=== PATIENT | female | born 1950 | race Two or more races ===

== ENCOUNTER 2021-02-14 22:25 | Inpatient (IN) | payer OTHER ==
[~2021-02-14] VITALS: Ht 154.9 cm; Wt 59.0 kg
[2021-02-14] MEDS ORDERED: LOSARTAN POTASS25 MG (22:37)
[2021-02-14] MEDS ORDERED: SYNTHROID100 MCG (22:38)
[2021-02-14] MEDS ORDERED: ADULT LOW DOSE81 M1 (22:38)
[2021-02-16] MEDS ORDERED: METRONIDAZOLE500 MG (08:28)
[2021-02-16] MEDS ORDERED: LEVOFLOXACIN500 MG (08:28)
[2021-02-16] MEDS ORDERED: FAMOTIDINE40 MG (08:28)
[2021-02-16] MEDS ORDERED: PANTOPRAZOLE SO40 MG (08:28)
[2021-02-16] MEDS ORDERED: HYDROCORTISO453.6 G1 (08:29)
[2021-02-16] MEDS ORDERED: OPTIVE EYE DROP15 ML (08:29)
[2021-02-16] MEDS ORDERED: ESOMEPRAZOLE MA20 MG (08:30)
[2021-02-16] MEDS ORDERED: VITAMIN D3250 MCG (08:30)
[2021-02-16] MEDS ORDERED: PENTOXIFYLLINE400 MG (08:30)
[2021-02-18] MEDS ORDERED: CIPRO500 MG PO (12:36)
[2021-02-18] MEDS ORDERED: METRONIDAZOLE500 MG PO (12:37)
== END 2021-02-18 20:03 | disposition home or self-care (01) | DRG 386 ==
LOC: ER 22:25 → SURH 02-15 16:43
PROVIDERS: ADMIT Surgery; ATTEND Surgery
PROC: 30233N1 Transfusion of Nonautologous Red Blood Cells into Peripheral Vein, Percutaneous Approach (ICD-10-PCS; principal; 2021-02-17)
DX: K51.00 Ulcerative (chronic) pancolitis without complications (principal); K56.690 Other partial intestinal obstruction; K51.018 Ulcerative (chronic) pancolitis with other complication; K62.4 Stenosis of anus and rectum; D64.9 Anemia, unspecified; I11.9 Hypertensive heart disease without heart failure; E03.9 Hypothyroidism, unspecified

== ENCOUNTER → 2021-02-27 08:00 | Outpatient (CLI) | payer OTHER ==
[~2021-02-27] VITALS: Ht 154.9 cm; Wt 59.0 kg
[~2021-02-27 08:00] MED LIST: ADULT LOW DOSE81 M1; CIPRO500 MG PO; ESOMEPRAZOLE MA20 MG; FAMOTIDINE40 MG; HYDROCORTISO453.6 G1; INTESTINEX680 M1 PO; KETOCONAZOLE15 GM; LEVOFLOXACIN500 MG; LOSARTAN POTASS25 MG; METRONIDAZOLE500 MG; METRONIDAZOLE500 MG PO; OPTIVE EYE DROP15 ML; PANTOPRAZOLE SO40 MG; PENTOXIFYLLINE400 MG; SYNTHROID100 MCG; ULTRAM50 MG PO; VITAMIN D3250 MCG
== END | disposition home or self-care (01) ==
LOC: LAB 08:00 → EDUNIT# 10:00 → SURH 03-03 10:00 → EDSTATUS 03-03 10:00
PROVIDERS: ATTEND Surgery
DX: K57.20 Diverticulitis of large intestine with perforation and abscess without bleeding (principal); Z03.818 Encounter for observation for suspected exposure to other biological agents ruled out; Z93.3 Colostomy status; K55.1 Chronic vascular disorders of intestine; K59.09 Other constipation; K43.2 Incisional hernia without obstruction or gangrene; Z20.828 Contact with and (suspected) exposure to other viral communicable diseases

== ENCOUNTER 2021-02-28 14:20 | Inpatient (IN) | payer OTHER ==
[~2021-02-28] VITALS: Ht 154.9 cm; Wt 56.7 kg
[~2021-02-28 14:20] MED LIST changes: -INTESTINEX680 M1 PO; -KETOCONAZOLE15 GM; -ULTRAM50 MG PO
[2021-03-02] MEDS ORDERED: FAMOTIDINE40 MG (16:07)
[2021-03-02] MEDS ORDERED: HYDROCORTISO453.6 G1 (16:07)
[2021-03-02] MEDS ORDERED: OPTIVE EYE DROP15 ML (16:07)
[2021-03-02] MEDS ORDERED: ESOMEPRAZOLE MA20 MG (16:08)
[2021-03-02] MEDS ORDERED: PENTOXIFYLLINE400 MG (16:08)
[2021-03-02] MEDS ORDERED: KETOCONAZOLE15 GM (16:08)
[2021-03-02] MEDS ORDERED: VITAMIN D3250 MCG (16:08)
[2021-03-10] MEDS ORDERED: ULTRAM50 MG PO (10:40)
[2021-03-10] MEDS ORDERED: INTESTINEX680 M1 PO (10:40)
== END 2021-03-10 14:31 | disposition home or self-care (01) | DRG 330 ==
LOC: ER 14:20 → SURH 20:17
PROVIDERS: Urology; ADMIT Surgery; ATTEND Surgery
PROC: 05HY33Z Insertion of Infusion Device into Upper Vein, Percutaneous Approach (ICD-10-PCS; 2021-03-01)
PROC: 0T788DZ Dilation of Bilateral Ureters with Intraluminal Device, Via Natural or Artificial Opening Endoscopic (ICD-10-PCS; 2021-03-03)
PROC: 0WQF0ZZ Repair Abdominal Wall, Open Approach (ICD-10-PCS; 2021-03-03)
PROC: 0DNF0ZZ Release Right Large Intestine, Open Approach (ICD-10-PCS; 2021-03-03)
PROC: 3E0F7SF Introduction of Other Gas into Respiratory Tract, Via Natural or Artificial Opening (ICD-10-PCS; 2021-03-03)
PROC: 0DTP0ZZ Resection of Rectum, Open Approach (ICD-10-PCS; principal; 2021-03-03 10:45)
PROC: 0DTN0ZZ Resection of Sigmoid Colon, Open Approach (ICD-10-PCS; 2021-03-03 10:45)
DX: K56.699 Other intestinal obstruction unspecified as to partial versus complete obstruction (principal); K51.00 Ulcerative (chronic) pancolitis without complications; K66.0 Peritoneal adhesions (postprocedural) (postinfection); K52.89 Other specified noninfective gastroenteritis and colitis; E86.0 Dehydration; D64.89 Other specified anemias; R53.81 Other malaise; I11.9 Hypertensive heart disease without heart failure; E03.8 Other specified hypothyroidism; K43.9 Ventral hernia without obstruction or gangrene; Z20.822 Contact with and (suspected) exposure to COVID-19